=== PATIENT | female | born 1955 | race Caucasian/White ===

== ENCOUNTER → 2016-08-14 | Outpatient (CLI) | payer OTHER ==
[~2016-08-14] MED LIST: PHENERGAN; VALACYCLOVIR PO; [UNRECOGNIZED DRUG - OTHER] PO
[2016-08-14 15:48] LABS: PATH.CAST-FLAG NOT PRESENT; SPERM-FLAG NOT PRESENT; SRC-FLAG NOT PRESENT; XTAL-FLAG NOT PRESENT; YLC-FLAG NOT PRESENT
== END | disposition home or self-care (01) ==
LOC: STAR 14:19
PROVIDERS: ATTEND Urology
DX: Z01.818 Encounter for other preprocedural examination (principal); N20.0 Calculus of kidney
CPT/HCPCS: 81001; 87086; 93005

== ENCOUNTER 2016-08-21 06:07 | Day surgery (SDC) | payer OTHER ==
[~2016-08-21] VITALS: Ht 172.7 cm; Wt 77.0 kg
[2016-08-21] MEDS ORDERED: SODIUM CHLORIDE 0.9% 1,000 ML IV SCH (06:37)
[2016-08-21] MEDS ORDERED: NONE PER PT (06:37)
[2016-08-21 06:38] VITALS: BP 105/72
[2016-08-21] MEDS ORDERED: LIDOCAINE 1%, 2ML ONE (06:46)
[2016-08-21] MEDS ORDERED: LIDOCAINE 2%, 20ML ONE (07:22)
[2016-08-21] MEDS ORDERED: MIDAZOLAM 1 MG/ML, 5ML ONE (07:33)
[2016-08-21] MEDS ORDERED: FENTANYL PF 100 MCG/2ML ONE (07:33)
[2016-08-21] MEDS ORDERED: NALOXONE 1 MG/ML, 2ML ONE (07:34)
[2016-08-21] MEDS ORDERED: FLUMAZENIL 0.1 MG/1 ML, 5ML ONE (07:34)
[2016-08-21] MEDS ORDERED: VISIPAQUE 270 MG/ML, 50ML BOTTLE ONE (08:36)
[2016-08-21] MEDS ORDERED: SCOPOLAMINE PATCH, 1.5MG PATCH.TD72 TD ONE (17:05)
== END 2016-08-21 10:37 | disposition home or self-care (01) ==
LOC: OUT 06:07
PROVIDERS: ATTEND Urology
DX: N20.0 Calculus of kidney (principal); Z87.440 Personal history of urinary (tract) infections
CPT/HCPCS: 36415; 50433; 74150; 76942; 85610; 99156; 99157; C1751; C1769; C1894; C2625; J2250; J3010; J3490; J7030; Q9966; 76937; J2310

== ENCOUNTER 2016-08-21 10:40 | Observation (INO) | payer OTHER ==
[2016-08-14 15:09] VITALS: BP 109/72
[~2016-08-21] VITALS: Ht 172.7 cm; Wt 81.5 kg
[~2016-08-21 10:40] MED LIST changes: +NONE PER PT
[2016-08-21] MEDS ORDERED: LACTATED RINGERS 1,000 ML IV SCH (10:59)
[2016-08-21] MEDS ORDERED: LIDOCAINE 1%, 2ML SQ PRN (11:00)
[2016-08-21] MEDS ORDERED: GENTAMICIN 80 MG/2 ML ONE (11:51)
[2016-08-21] MEDS ORDERED: CIPROFLOXACIN/PMX 400MG/200ML 200 ML ONE (11:58)
[2016-08-21] MEDS ORDERED: SCOPOLAMINE PATCH, 1.5MG PATCH.TD72 TD ONE (12:03)
[2016-08-21] MEDS ORDERED: KETAMINE 10 MG/ML, 20ML ONE (12:06)
[2016-08-21] MEDS ORDERED: FENTANYL PF 250 MCG/5ML ONE (12:06)
[2016-08-21] MEDS ORDERED: LIDOCAINE 2%, 10ML ONE (12:07)
[2016-08-21] MEDS ORDERED: PROPOFOL 10 MG/ML, 50ML ONE (12:07)
[2016-08-21] MEDS ORDERED: METOCLOPRAMIDE 5 MG/ML, 2ML ONE (12:07)
[2016-08-21] MEDS ORDERED: DEXAMETHASONE 4 MG/ML, 1ML ONE (12:07)
[2016-08-21] MEDS ORDERED: PROPOFOL 10 MG/ML, 20ML ONE (12:07)
[2016-08-21] MEDS ORDERED: ONDANSETRON 2MG/ML, 2ML ONE (12:07)
[2016-08-21] MEDS ORDERED: CIPROFLOXACIN 400MG/200ML PMX ONE (12:07)
[2016-08-21] MEDS ORDERED: ROCURONIUM 10 MG/ML ONE (12:07)
[2016-08-21] MEDS ORDERED: FENTANYL PF 100 MCG/2ML IV PRN (12:30)
[2016-08-21] MEDS ORDERED: PROMETHAZINE 25 MG/ML, 1ML IV PRN (12:30)
[2016-08-21] MEDS ORDERED: OXYcodone 5 MG/5 ML ORAL.SOL UDC PO PRN (12:30)
[2016-08-21] MEDS ORDERED: LABETALOL 5MG/ML, 20ML IV PRN (12:30)
[2016-08-21] MEDS ORDERED: HYDROmorphone 1 MG/ML, 1ML IV PRN (12:30)
[2016-08-21] MEDS ORDERED: MIDAZOLAM 1 MG/ML, 2ML IV PRN (12:30)
[2016-08-21] MEDS ORDERED: hydrALAzine 20 MG/ML, 1ML IV PRN (12:30)
[2016-08-21] MEDS ORDERED: ONDANSETRON 2MG/ML, 2ML IVPush PRN (12:30)
[2016-08-21] MEDS ORDERED: MEPERIDINE/PF 25MG/0.5ML IVPush PRN (12:30)
[2016-08-21] MEDS ORDERED: OMNIPAQUE 350 MG/ML, 50 ML BOTTLE ONE (14:18)
[2016-08-21] MEDS ORDERED: OXYcodone/APAP 5/325MG TABLET PO PRN (14:30)
[2016-08-21] MEDS ORDERED: HYDROmorphone 2 MG/ML, 1ML IV PRN (14:30)
[2016-08-21] MEDS ORDERED: OXYcodone 5 MG/5 ML ORAL.SOL UDC ONE (14:33)
[2016-08-21] MEDS ORDERED: FENTANYL PF 100 MCG/2ML ONE (14:33)
[2016-08-21] MEDS ORDERED: MEPERIDINE/PF 25MG/0.5ML ONE (14:57)
[2016-08-21] MEDS ORDERED: OPIUM/BELLADONNA SUPP.RECT 16.2-30 MG PR PRN (16:00)
[2016-08-21] MEDS ORDERED: PHENAZOPYRIDINE 200 MG TABLET PO PRN (16:00)
[2016-08-21 19:10] VITALS: BP 119/84
[2016-08-21] MEDS: LACTATED RINGERS 1,000 ML IV SCH (20:17)
[2016-08-21] MEDS: ONDANSETRON 2MG/ML, 2ML IVPush PRN (21:40)
[2016-08-22] VITALS: BP 137/76
[2016-08-22 03:04] VITALS: BP 130/81
[2016-08-22] MEDS: LACTATED RINGERS 1,000 ML IV SCH (05:56)
[2016-08-22 05:59] LABS: BLOOD UREA NITROGEN 11 mg/dL (7-18)
[2016-08-22 07:52] VITALS: BP 122/77
[2016-08-22] MEDS: ONDANSETRON 2MG/ML, 2ML IVPush PRN (08:04)
== END 2016-08-22 10:27 | disposition home or self-care (01) ==
LOC: OUT 10:40 → ORIP 14:17 → 4NOR 16:50
PROVIDERS: ADMIT Urology; ATTEND Urology
DX: N20.0 Calculus of kidney (principal); K21.9 Gastro-esophageal reflux disease without esophagitis; F41.9 Anxiety disorder, unspecified; Z90.49 Acquired absence of other specified parts of digestive tract; Z80.1 Family history of malignant neoplasm of trachea, bronchus and lung; Z80.42 Family history of malignant neoplasm of prostate
CPT/HCPCS: 36415; 50080; 74425; 80048; 82360; 85025; 88300; 96374; 96376; C1729; C1769; C2617; C2625; C2627; G0378; J0744; J1100; J2175; J2405; J2704; J2765; J3010; J3490; J7120; Q9967; J1580